=== PATIENT | female | born 1945 | race Caucasian/White ===

== ENCOUNTER → 2017-03-28 | Outpatient (CLI) | payer MEDICARE, OTHER ==
[2015-09-01 15:40] VITALS: BP 145/79
[~2017-03-28] MED LIST: ACTONEL150 MG PO; ADVAIR; ALPRAZOLAM0.25 MG PO; ATROVENT INHALE14 GM IH; BYSTOLIC2.5 MG PO; CALCIUM600 MG PO; CELEBREX200 MG; CELEBREX200 MG PO; FLAX SEED OIL1000 MG PO; FLOVENT0.044 MG/A IH; LISINOPRIL5 MG PO; MOTRIN IB200 M1 PO; MULTIPLE VITAMI1 CAP PO; NEXIUM 20MG CAP20 MG PO; NEXIUM 40MG40 MG PO; OMEPRAZOLE40 MG PO; PROCARDIA XL30 MG; SINGULAIR10 MG PO; TYLENOL 325MG325 MG PO; TYLENOL PM 5001 CAP PO; VITAMIN D 400400 IU PO; WELCHOL625 MG; WELCHOL625 MG PO; ZOFRAN4 M1 PO; ZOLPIDEM5 MG PO
== END ==
LOC: MAMMO 07:02
DX: Z12.31 Encounter for screening mammogram for malignant neoplasm of breast (principal)
CPT/HCPCS: G0202